=== PATIENT | male | born 2005 | race Caucasian/White ===

== ENCOUNTER 2024-12-14 00:30 | Emergency (ER) | payer SELFPAY ==
[2024-12-14] MEDS ORDERED: LIDOCAINE 1% 20 ML MDV ONE (00:39)
--- NOTE | 2024-12-14 00:51 | EDPHYS ---
Physician Documentation [facility] Name: Myron Rich Age: 19 yrs Sex: Male : 2005 Arrival Date: 12/14/2024 Time: 00:30 Bed 4 Private MD: ED Physician Luke Tinoco HPI: 12/14 00:53 This 19 yrs old Male presents to ER via Ambulatory with complaints of Foreign Body In sb4 Ear - bug. 00:54 The patient or guardian reports the patient has a suspected foreign body, of the ear, sb4 on the left. The reported likely foreign body is an insect. Onset: The symptoms/episode began/occurred just prior to arrival. Current symptoms: foreign body sensation. Treatment Prior to Arrival: tried to flush, with peroxide. The patient has experienced a previous episode. Historical: - Allergies: 00:45 No Known Allergies; ha1 - PMHx: 00:45 None; ha1 - Immunization history:: Adult Immunizations up to date. - Infectious Disease History:: Denies. - Social history:: Smoking status: Patient denies any tobacco usage or history of. ROS: 00:54 Constitutional: Negative for fever, chills, and weight loss, sb4 00:54 ENT: Positive for ear pain, foreign body sensation, 00:54 All other systems are negative, Exam: 00:54 Constitutional: This is a well developed, well nourished patient who is awake, alert, sb4 and in no acute distress. Head/Face: Normocephalic, atraumatic. Eyes: Extra-ocular motions intact. Periorbital areas with no swelling, redness, or edema. Respiratory: No increased work of breathing, no retractions or nasal flaring. Skin: Warm, dry with normal turgor. Normal color with no rashes, no lesions, and no evidence of cellulitis. 00:54 ENT: Ear canal(s): foreign body, an insect, in the left external ear canal, TM's: are normal, no acute changes, Vital Signs: 00:33 BP 151 / 84; Pulse 96; Resp 18 S; Temp 97.6; Pulse Ox 100% on R/A; Weight 122.47 kg; ha1 Height 6 ft. 2 in. ; 00:33 Body Mass Index 34.67 (122.47 kg, 187.96 cm) ha1 Procedures: 00:54 Foreign Body Removal: an insect, from the left ear canal, by using alligator clamps, sb4 lidocaine lavage, normal saline irrigation, The patient tolerated the removal well. MDM: 00:33 Medical Screening Exam initiated sb4 00:54 Data reviewed: vital signs, nurses notes, and as a result, I will discharge patient. sb4 Historians other than the Patient: Spouse/Significant Other: . Counseling: I had a detailed discussion with the patient and/or guardian regarding the historical points, exam findings, and any diagnostic results supporting the discharge/admit diagnosis, the need for outpatient follow up, for definitive care, to return to the emergency department if symptoms worsen or persist or if there are any questions or concerns that arise at home. Administered Medications: No medications were administered Disposition: 02:50 Co-signature as Attending Physician, Luke Tinoco MD I agree with the assessment sp4 and plan of care. I reviewed the patient's care provided by the Advanced Practice Provider and agree with the diagnosis and treatment plan. Disposition Summary: 12/14/24 00:51 Discharge Ordered Notes: Location: Home sb4 Problem: new sb4 Symptoms: are resolved sb4 Condition: Stable sb4 Diagnosis - Foreign body in left ear sb4 Followup: sb4 - With: Emergency Department - When: As needed - Reason: Trouble breathing, Worsening of condition Discharge Instructions: - Discharge Summary Sheet sb4 - Ear Foreign Body, [id number] sb4 Forms: - Patient Portal Instructions sb4 - Leadership Thank You Letter sb4 Signatures: Misty Bowens RN RN 1 Tayler Uribe PA-C PA-C sb4 Luke Tinoco MD MD sp4
--- NOTE | 2024-12-14 00:51 | ER ---
Nurse's Notes [facility] Name: Myron Rich Age: 19 yrs Sex: Male : 2005 Arrival Date: 12/14/2024 Time: 00:30 Bed 4 Private MD: Diagnosis: Foreign body in left ear Presentation: 12/14 00:33 Chief complaint: Patient states: BUG IN THE LEFT EAR. ha1 00:33 Coronavirus screen: Client denies travel out of the [place] in the last 14 days. Ebola ha1 Screen: No symptoms or risks identified at this time. Initial Sepsis Screen: Does the patient meet any 2 criteria? No. Patient's initial sepsis screen is negative. Does the patient have a suspected source of infection? No. Patient's initial sepsis screen is negative. Risk Assessment: Do you want to hurt yourself or someone else? Patient reports no desire to harm self or others. Onset of symptoms was December 14, 2024. 00:33 Method Of Arrival: Ambulatory ha1 00:33 Acuity: JAZZY 4 ha1 Triage Assessment: 00:45 General: Appears uncomfortable, Behavior is cooperative. Pain: Complains of pain in ha1 left ear Pain currently is 7 out of 10 on a pain scale. Quality of pain is described as aching. Neuro: Level of Consciousness is awake, alert, obeys commands, Oriented to person, place, time, situation. Cardiovascular: Capillary refill < 3 seconds Patient's skin is warm and dry. Respiratory: Airway is patent Respiratory effort is even, unlabored, Respiratory pattern is regular, symmetrical. Historical: - Allergies: 00:45 No Known Allergies; ha1 - PMHx: 00:45 None; ha1 - Immunization history:: Adult Immunizations up to date. - Infectious Disease History:: Denies. - Social history:: Smoking status: Patient denies any tobacco usage or history of. Screenin:48 [facility] ED Fall Risk Assessment (Adult) History of falling in the last 3 months, ha1 including since admission No falls in past 3 months (0 pts) Confusion or Disorientation No (0 pts) Intoxicated or Sedated No (0 pts) Impaired Gait No (0 pts) Mobility Assist Device Used No (0 pt) Altered Elimination No (0 pt) Score/Fall Risk Level 0 - 2 = Low Risk Oriented to surroundings, Maintained a safe environment, Educated pt \T\ family on fall prevention, incl call for assistance when getting out of bed, Hourly rounding (assess needs \T\ fall precautionary measures) done. Abuse screen: Denies threats or abuse. Denies injuries from another. Nutritional screening: No deficits noted. Tuberculosis screening: No symptoms or risk factors identified. Assessment: 00:49 General: Appears in no apparent distress. uncomfortable, Behavior is calm, cooperative, cp4 appropriate for age. Pain: Denies pain. Neuro: Level of Consciousness is awake, alert, obeys commands, Oriented to person, place, time, situation. Cardiovascular: Patient's skin is warm and dry. Respiratory: Airway is patent Respiratory effort is even, unlabored. GI: No signs and/or symptoms were reported involving the gastrointestinal system. : No signs and/or symptoms were reported regarding the genitourinary system. EENT: Reports bug in left ear. Derm: No signs and/or symptoms reported regarding the dermatologic system. Musculoskeletal: No signs and/or symptoms reported regarding the musculoskeletal system. Vital Signs: 00:33 BP 151 / 84; Pulse 96; Resp 18 S; Temp 97.6; Pulse Ox 100% on R/A; Weight 122.47 kg; ha1 Height 6 ft. 2 in. ; 00:33 Body Mass Index 34.67 (122.47 kg, 187.96 cm) ha1 ED Course: 00:32 Patient arrived in ED. im 00:33 Tayler Uribe PA-C is PHCP. sb4 00:33 Luke Tinoco MD is Attending Physician. sb4 00:33 Patient has correct armband on for positive identification. Bed in low position. Call ha1 light in reach. Side rails up X 1. 00:45 Triage completed. ha1 00:49 Provided Education on: foreign body in ear.. cp4 00:49 No provider procedures requiring assistance completed. Patient did not have IV access cp4 during this emergency room visit. 00:58 eKlly Reeder is Primary Nurse. cp4 00:58 Arm band placed on right wrist. Patient placed in waiting room. cp4 Administered Medications: No medications were administered Medication: 00:49 VIS not applicable for this client. cp4 Outcome: 00:51 Discharge ordered by . sb4 00:58 Discharged to home ambulatory, cp4 00:58 Condition: stable 00:58 Discharge instructions given to patient, family, Instructed on discharge instructions, follow up and referral plans. Demonstrated understanding of instructions, follow-up care, 00:59 Patient left the ED. cp4 Signatures: Misty Bowens RN RN ha1 Tayler Uribe PA-C PANandini sb4 Jacqueline Mcclendon Christina cp4
[2024-12-14 05:57] VITALS: BP 151/84; TEMP 97.6; O2SAT 100
== END 2024-12-14 00:59 | disposition home or self-care (01) ==
LOC: ER 00:30
PROC: 09C4XZZ Extirpation of Matter from Left External Auditory Canal, External Approach (ICD-10-PCS; principal; 2024-12-14)
DX: S00.452A Superficial foreign body of left ear, initial encounter (principal)
CPT/HCPCS: 99282; J2003